=== PATIENT | female | born 1955 | race Caucasian/White ===

== ENCOUNTER → 2017-06-14 | Outpatient (CLI) | payer OTHER, BC ==
--- NOTE | 2017-06-14 10:10 | ECGEPIP ---
Stationary ECG Study [facility] Test Date: 2017-06-14 Pat Name: JOSE A RODRIGUEZ Department: Room: - Gender: F Global Coordinator: DIVYA : 1955 Requested By: Coleen Forrest Order Number: [id number] Reading MD: Adolfo Golden Measurements Intervals [place] Rate: 63 P: 63 NC: 153 QRS: 32 QRSD: 92 T: 35 QT: 371 QTc: 383 Interpretive Statements SINUS RHYTHM Poor R-wave progression Low precordial voltages No prior ECG available for comparison at the time of interpretation. Electronically Signed On 06-14-2017 10:09:39 EDT by Adolfo Golden
== END ==
LOC: M EKG 06:48
PROVIDERS: ATTEND Orthopaedic Surgery
DX: Z01.818 Encounter for other preprocedural examination (principal)

== ENCOUNTER → 2017-07-22 | Outpatient (REF) | payer BC, OTHER ==
[2017-07-24 00:06] LABS: Lyme Disease IgG/IgM Antibodie <0.91 ISR (0.00-0.90); Lyme Disease IgM Ab Quantitati <0.80 index (0.00-0.79)
== END ==
LOC: M LABDRAW1 11:44
PROVIDERS: ATTEND Physician Assistant
DX: Z47.89 Encounter for other orthopedic aftercare (principal)

== ENCOUNTER → 2018-05-13 | Outpatient (REF) | payer OTHER | LOC: M LAB REF 16:29 | DX: J30.9 Allergic rhinitis, unspecified (principal) ==

== ENCOUNTER 2023-06-16 17:11 | Emergency (ER) | payer MEDICARE, OTHER ==
[~2023-06-16] VITALS: Ht 160 cm; Wt 72.7 kg
[2023-06-16 17:12] VITALS: TEMP 98.1
[2023-06-16] MEDS ORDERED: ONDANSETRON 4MG 2ML VIAL IV ONE (17:40)
[2023-06-16] MEDS ORDERED: MORPHINE 2 MG/ML 1ML VIAL IV PRN (17:40)
[2023-06-16] MEDS ORDERED: ISOVUE-370 76% 100ML VIAL As Ordered ONE (18:07)
[2023-06-16 18:13] LABS: BASO % 0.3 % (0.0-1.0); EOS # 0.1 10^3/uL (0.0-0.5); EOS % 1.2 % (0.0-3.0); HEMATOCRIT 40.3 % (36.0-47.0); HEMOGLOBIN 13.9 g/dl (12.0-15.5); LYMPH % 21.3 % (24.0-44.0); MEAN CORPUSCULAR HEMOGLOBIN 32.2 pg (27.0-33.0); MEAN CORPUSCULAR HGB CONC 34.5 g/dl (32.0-36.5); MEAN CORPUSCULAR VOLUME 93.3 fl (80.0-96.0); MONO # 0.9 10^3/uL (0.0-0.8); MONO % 9.3 % (2.0-8.0); NEUTROPHILS # 6.2 10^3/uL (1.5-8.5); NEUTROPHILS % 67.7 % (36.0-66.0); PLATELET COUNT, AUTOMATED 219 10^3/uL (150-450); RED BLOOD COUNT 4.32 10^6/uL (4.00-5.40); WHITE BLOOD COUNT 9.2 10^3/uL (4.0-10.0)
[2023-06-16 20:30] VITALS: BP 164/73; O2SAT 98
[2023-06-16] MEDS ORDERED: OXYCODONE/APAP 5MG/325MG(HOME DOSE PACK) PO ONE (20:40)
== END 2023-06-16 21:04 | disposition home or self-care (01) ==
LOC: M ED 17:11
DX: S22.41XA Multiple fractures of ribs, right side, initial encounter for closed fracture (principal); W01.0XXA Fall on same level from slipping, tripping and stumbling without subsequent striking against object, initial encounter; Y92.009 Unspecified place in unspecified non-institutional (private) residence as the place of occurrence of the external cause; Y93.01 Activity, walking, marching and hiking; Y99.8 Other external cause status; I10 Essential (primary) hypertension; Z85.3 Personal history of malignant neoplasm of breast
CPT/HCPCS: 70450; 71260; 72170; 73110; 73130; 74177; 80047; 85025; 93041; 96365; 96366; 96375; 99284; J2405; Q9967